=== PATIENT | female | born 1950 | race Two or more races ===

== ENCOUNTER 2024-09-15 22:59 | Inpatient (IN) | payer OTHER ==
[~2024-09-15] VITALS: Ht 160 cm; Wt 87.0 kg
[2024-09-15 23:33] LABS: Basophils # (auto) 0.1 10 ^3/uL (0-0.2); Basophils % (auto) 0.5 % (0.0-2.0); Eosinophils # (auto) 0 10 ^3/uL (0-0.8); Eosinophils % (auto) 0.3 % (0.0-7.0); Hematocrit 44.9 % (36.0-46.0); Hemoglobin 14.6 g/dL (12.2-16.2); Lymphocytes # (auto) 0.7 10 ^3/uL (0.4-5.4); Mean Corpuscular Hemoglobin 28.6 pg (28.0-32.0); Mean Corpuscular Hgb Conc. 32.5 g/dL (32.0-36.0); Mean Corpuscular Volume 87.9 fL (80.0-100.0); Monocytes # (auto) 0.7 10 ^3/uL (0-1.3); Monocytes % (auto) 5.2 % (0.0-12.0); Neutrophils # (auto) 11.7 10 ^3/uL (1.6-8.6); Nucleated Red Blood Cells % 0.1 %; Platelet Count (auto) 239 10^3/uL (140-450); Red Blood Cells 5.11 10^6/uL (4.0-5.20); Red Cell Distribution Width 15.6 % (11.8-14.3); White Blood Cell 13.1 10^3/uL (4.4-10.8)
[2024-09-15 23:51] LABS: Alanine Aminotransferase 18 U/L (7-40); Albumin 4.5 g/dL (3.2-4.8); Alkaline Phosphatase 84 U/L (46-116); Anion Gap 10 (5-15); Aspartate Aminotransferase 18 U/L (13-40); Blood Urea Nitrogen 16 mg/dL (9-23); Carbon Dioxide 20 mmol/L (20-31); Chloride 106 mmol/L (98-107); Sodium 136 mmol/L (136-145)
[2024-09-15 23:52] LABS: Bilirubin, Total 0.6 mg/dL (0.2-1.0); Total Protein 7.5 g/dL (5.7-8.2)
[2024-09-15 23:54] LABS: Calcium 10.5 mg/dL (8.7-10.4); Glucose 198 mg/dL (74-106)
--- NOTE | 2024-09-16 01:35 | DVH ---
EXAM: XY CHEST XRAY 1 VIEW CLINICAL HISTORY: cp TECHNIQUE: Single AP view of the chest WID: COMPARISON: None FINDINGS: Lines and tubes: None Chest: The heart size and pulmonary vasculature is within normal limits. No pleural effusion, pneumothorax, or consolidation. Linear bibasilar scarring or atelectasis. The osseous structures are grossly intact. IMPRESSION: No acute cardiopulmonary abnormality.
--- NOTE | 2024-09-16 01:48 | ED.PDOC ---
HPI Comments 73-year-old female complaining of chest pain reported as tightness which started at 4:00 p.m.. States chest pain came on she felt nauseous and started feeling dizzy. Patient states she waited for did improve but it had not improved. She was at 8/10 chest pain. She called EMS. Blood pressure with the EMS he was 200s over 100s EMS was able to give her a breathing treatment and one tablet of nitro. Patient reports it did reduce the chest pain. EKG showed right bundle-branch block patient denies any fever or chills denies any cough or congestion Chief Complaint: Chest Pain Time Seen by MD: 23:03 Reviewed Notes: Nurses Notes Allergies: Coded Allergies: Sulfamethoxazole w/Trimethoprim (Verified Allergy, Unknown, 09/15/24) Information Source: Patient, Emergency Med Personnel Mode of Arrival: EMS Severity: Severe Past Medical History PAST MEDICAL HISTORY: Cancer, High Lipids, HTN Constitutional: reports: fatigue, weakness; denies: chills, diaphoresis, fever, sweats, others EENTM: denies: blurred vision, double vision, ear bleeding, ear discharge, ear drainage, ear pain, ear ringing, eye pain, eye redness, hearing loss, mouth pain, mouth swelling, nasal discharge, nose bleeding, nose congestion, nose p ain, photophobia, tearing, throat pain, throat swelling, voice changes, others Respiratory: denies: cough, hemoptysis, orthopnea, SOB at rest, shortness of breath, SOB with excertion, stridor, wheezing, others Cardiovascular: reports: chest pain, lightheadedness; denies: dizzy spells, diaphoresis, Dyspnea on exertion, edema, irregular heart beat, left arm pain, palpitations, PND, syncope, others Gastrointestinal: reports: nausea, vomiting; denies: abdomen distended, abdominal pain, blood streaked bowels, constipated, diarrhea, dysphagia, difficulty swallowing, hematemesis, melena, poor appetite, poor fluid intake, rectal bleeding, rectal pain, others Genitourinary: denies: abnormal vagina bleeding, burning, dyspareunia, dysuria, flank pain, frequency, hematuria, incontinence, pain, , vagina discharge, urgency, others Neurological: denies: dizziness, fainting, headache, left sided numbness, left sided weakness, numbness, paresthesia, pre-existing deficit, right sided numbness, right sided weakness, seizure, speech problems, tingling, tremors, weakness, others Musculoskeletal: denies: back pain, gout, joint pain, joint swelling, muscle pain, muscle stiffness, neck pain, others Integumetry: denies: bruises, change in color, change in hair/nails, dryness, laceration, lesions, lumps, rash, wounds, others Allergic/Immunocompromised: denies: Difficulty Healing, Frequent Infections, Hives, Itching, others Physical Exam General Appearance: Moderate Distress, Normal HEENT: Normal ENT Inspection, Pharynx Normal, TMs Normal Neck: Full Range of Motion, Non-Tender, Normal, Normal Inspection Respiratory: Chest Non-Tender, Lungs Clear, No Accessory Muscle Use, No Resp iratory Distress, Normal Breath Sounds Cardiovascular: No Edema, No JVD, No Murmur, No Gallop, Normal Peripheral Pulses, Regular Rate/Rhythm Breast Exam: Deferred Gastrointestinal: No Organomegaly, Non Tender, No Pulsatile Mass, Normal Bowel Sounds, Soft Genitalia: Deferred Pelvic: Deferred Rectal: Deferred Extremities: No calf tenderness, Normal capillary refill, Normal inspection, Normal range of motion, Non-tender, No pedal edema Musculoskeletal : Apperance: Normal Neurologic: Alert, 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 Was a procedure done?: No CP Differential Dx Differential Diagnosis: Anxiety / Panic Attack, Atrial Dysrhythmia, Hyperventilation, Hypoxia, ME, Pulmonary Embolus Differential Diagnosis: HTN Essential, HTN Accelerated Differential Diagnosis: Angina X-Ray, Labs, Meds, VS Vital Signs Date Time Temp Pulse Resp B/P (MAP) Pulse Ox O2 Delivery O2 Flow Rate FiO2 09/15/24 23:56 118 09/15/24 23:15 98.5 108 16 103/60 (74) 97 09/15/24 23:04 123 Lab Test 09/16/24 00:11 09/15/24 23:20 Range/Units Troponin I High Sensitivity < 3 L < 3 L </=34 ng/L White Blood Count 13.1 H 4.4-10.8 10^3/uL Red Blood Count 5.11 4.0-5.20 10^6/uL Hemoglobin 14.6 12.2-16.2 g/dL Hematocrit 44.9 36.0-46.0 % Mean Corpuscular Volume 87.9 80.0-100.0 fL Mean Corpuscular Hemoglobin 28.6 28.0-32.0 pg Mean Corpuscular Hemoglobin Concent 32.5 32.0-36.0 g/dL Red Cell Distribution Width 15.6 H 11.8-14.3 % Platelet Count 239 140-450 10^3/uL Mean Platelet Volume 8.1 6.9-10.8 fL Neutrophils (%) (Auto) 89.0 H 37.0-80.0 % Lymphocytes (%) (Auto) 5.0 L 10.0-50.0 % Monocytes (%) (Auto) 5.2 0.0-12.0 % Eosinophils (%) (Auto) 0.3 0.0-7.0 % Basophils (%) (Auto) 0.5 0.0-2.0 % Neutrophils # (Auto) 11.7 H 1.6-8.6 10 ^3/uL Lymphocytes # (Auto) 0.7 0.4-5.4 10 ^3/uL Monocytes # (Auto) 0.7 0-1.3 10 ^3/uL Eosinophils # (Auto) 0 0-0.8 10 ^3/uL Basophils # (Auto) 0.1 0-0.2 10 ^3/uL Nucleated Red Blood Cells 0.1 % Sodium Level 136 136-145 mmol/L Potassium Level 4.0 3.5-5.1 mmol/L Chloride Level 106 98-107 mmol/L Carbon Dioxide Level 20 20-31 mmol/L Anion Gap 10 5-15 Blood Urea Nitrogen 16 9-23 mg/dL Creatinine 1.46 H 0.550-1.02 mg/dL Glomerular Filtration Rate Calc 37 >90 mL/min BUN/Creatinine Ratio 11.0 10.0-20.0 Serum Glucose 198 H 74-106 mg/dL Calcium Level 10.5 H 8.7-10.4 mg/dL Total Bilirubin 0.6 0.2-1.0 mg/dL Aspartate Amino Transferase (AST) 18 13-40 U/L Alanine Aminotransferase (ALT) 18 7-40 U/L Alkaline Phosphatase 84 46-116 U/L B-Type Natriuretic Peptide 10.69 0-100 pg/mL Total Protein 7.5 5.7-8.2 g/dL Albumin 4.5 3.2-4.8 g/dL X-Ray, Labs, Meds, VS Comment Patient will be admitted for chest pain rule out ACS Recommend cardiology consult morning Patient will be monitored for blood pressure Time of 1ST Reevaluation: 01:47 Reevaluation 1ST: Unchanged Patient Education/Counseling: Diagnosis, Treatment Family Education/Counseling: Diagnosis Departure 1 Departure Time of Disposition: 01:45 Impression: Primary Impression: Chest pain Qualified Codes: R07.2 - Precordial pain Additional Impression: Hypertensive urgency Disposition: 09 ADMITTED INPATIENT Condition: Fair Critical Care Note Critical Care Time?: No Stability Stability form required: No Heart Score Heart Score: Heart Score Response (Comments) Value History Highly Suspicious 2 EKG Repolarization Disturb 1 Age >65 2 Risk Factors 1 or 2 risk factors 1 Troponin Normal limit 0 Total 6 DEMETRIUS GARNETT Sep 16, 2024 01:48
[2024-09-16] MEDS ORDERED: MORPHINE SULFATE INJ 2 MG/ml SYRG IV PRN (02:30)
[2024-09-16] MEDS ORDERED: NITROGLYCERIN 0.4 MG SL TAB SL PRN (02:30)
--- NOTE | 2024-09-16 03:29 | DVHHPRES ---
History of Present Illness Resident Creating Document: PURVI HERNANDEZ RESDIENT History of Present Illness This is a 73-year-old female past medical history of diabetes mellitus type 2, hypothyroidism, hypertension, hyperlipidemia, presented to the hospital because of the chest comfort. Per patient, 1st the patient developed left shoulder pain which was radiating to the back and neck, after 1 hour, the patient developed epigastric discomfort which was associated nausea, vomiting, palpitation and sweating. Patient denies fever, headache, and any motor or sensory deficits. PMHx: diabetes mellitus type 2, hypothyroidism, hypertension, hyperlipidemia and breast cancer (status post intubation) PSHx: Breast cancer surgery, eye surgery for the cataracts Family history: Noncontributory Social history: Patient lives at home with the family, ex-smoker, denies alcohol and any drug use Home medication: Insulin, Jardiance, metoprolol, levothyroxine, atorvastatin, aspirin, Protonix Allergic history: Bactrim Review of Systems Allergies: Coded Allergies: Sulfamethoxazole w/Trimethoprim (Verified Allergy, Unknown, 09/15/24) Exam Vital Signs Vital Signs Date Time Temp Pulse Resp B/P (MAP) Pulse Ox O2 Delivery O2 Flow Rate FiO2 09/15/24 23:56 118 09/15/24 23:15 98.5 16 103/60 (74) 97 Exam General Appearance: Alert, Oriented X3, Cooperative, No acute distress HEENT: Atraumatic, PERRLA, EOMI, Mucous membrane moist/pink Respiratory: Clear to auscultation, Normal air movement Cardiovascular: Regular rate, Normal S1, Normal S2, No murmurs, no chest wall tenderness Abdominal: Normal bowel sounds, Soft, No tenderness, No hepatospenomegaly, No masses Extremities: No clubbing, No cyanosis, No edema, Normal pulses, No tenderness/swelling Skin: No rashes, No breakdown, No significant lesion Neuro: Normal gait, Normal speech, Strength at 5/5 X4 ext, Normal tone, Sensation intact, Cranial nerves 3-12 NL, Reflexes 2+ Psych/Mental Status: Mental status NL, Mood NL Labs/Xrays Labs Test 09/16/24 00:11 09/15/24 23:20 Range/Units Troponin I High Sensitivity < 3 L </=34 ng/L White Blood Count 13.1 H 4.4-10.8 10^3/uL Red Blood Count 5.11 4.0-5.20 10^6/uL Hemoglobin 14.6 12.2-16.2 g/dL Hematocrit 44.9 36.0-46.0 % Mean Corpuscular Volume 87.9 80.0-100.0 fL Mean Corpuscular Hemoglobin 28.6 28.0-32.0 pg Mean Corpuscular Hemoglobin Concent 32.5 32.0-36.0 g/dL Red Cell Distribution Width 15.6 H 11.8-14.3 % Platelet Count 239 140-450 10^3/uL Mean Platelet Volume 8.1 6.9-10.8 fL Neutrophils (%) (Auto) 89.0 H 37.0-80.0 % Lymphocytes (%) (Auto) 5.0 L 10.0-50.0 % Monocytes (%) (Auto) 5.2 0.0-12.0 % Eosinophils (%) (Auto) 0.3 0.0-7.0 % Basophils (%) (Auto) 0.5 0.0-2.0 % Neutrophils # (Auto) 11.7 H 1.6-8.6 10 ^3/uL Lymphocytes # (Auto) 0.7 0.4-5.4 10 ^3/uL Monocytes # (Auto) 0.7 0-1.3 10 ^3/uL Eosinophils # (Auto) 0 0-0.8 10 ^3/uL Basophils # (Auto) 0.1 0-0.2 10 ^3/uL Nucleated Red Blood Cells 0.1 % Sodium Level 136 136-145 mmol/L Potassium Level 4.0 3.5-5.1 mmol/L Chloride Level 106 98-107 mmol/L Carbon Dioxide Level 20 20-31 mmol/L Anion Gap 10 5-15 Blood Urea Nitrogen 16 9-23 mg/dL Creatinine 1.46 H 0.550-1.02 mg/dL Glomerular Filtration Rate Calc 37 >90 mL/min BUN/Creatinine Ratio 11.0 10.0-20.0 Serum Glucose 198 H 74-106 mg/dL Calcium Level 10.5 H 8.7-10.4 mg/dL Total Bilirubin 0.6 0.2-1.0 mg/dL Aspartate Amino Transferase (AST) 18 13-40 U/L Alanine Aminotransferase (ALT) 18 7-40 U/L Alkaline Phosphatase 84 46-116 U/L B-Type Natriuretic Peptide 10.69 0-100 pg/mL Total Protein 7.5 5.7-8.2 g/dL Albumin 4.5 3.2-4.8 g/dL Assessment/Plan Assessment/Plan Possible ACS, unstable angina Possible gastritis History of hypertension EKG shows right bundle-branch block Chest x-ray shows no acute cardiopulmonary abnormalities BNP is within normal limits and serial trop I is also normal Echocardiogram Consult cardiology Aspirin Atorvastatin Nitroglycerin sublingually Metoprolol Diabetes mellitus type 2 Check Hb A1c Insulin according to mild SS Hypothyroidism Continue levothyroxine Check TSH Hypercalcemia Likely due to dehydration due to vomiting Hyperlipidemia Continue atorvastatin Possible RAY, likely VMN Check FENa Kidney ultrasound DIET: Cardiac diet DVT PROPHYLAXIS: Lovenox GI PROPHYLAXIS:: Protonix CODE STATUS: Goal of care discussed for more than 27 minutes, full code DISPOSITION: Telemetry Patient's status discussed with patient and on the bedside. Case discussed with Dr. Jackson Plan discussed with: Patient, Spouse, Other (RN) My Orders Orders - PURVI HERNANDEZ RESNATHAN Procedure Category Date Status Time Admit ADMIT 09/16/24 Transmitted 02:21 Nitroglycerin PHA 09/16/24 In Process Sublingual (Ntrostat 02:30 Morphine Sulfate PHA 09/16/24 In Process Injection 02:30 Stat Ekg For Chest [facility] 09/16/24 In Process Pain 02:21 Notify Of Changes [facility] 09/16/24 In Process From Base 02:21 Basket Machine Operator For [facility] 09/16/24 In Process 24 Hours 02:21 Emergency Dysrhythmia [facility] 09/16/24 In Process Protocol 02:21 Rhythm Strips Once [facility] 09/16/24 In Process Every Shift 02:21 Echo 2d Mode Cardiac US 09/16/24 Logged DOP 03:02 Complete Blood Count LAB 09/16/24 Logged 04:00 Comprehensive LAB 09/16/24 Logged Metabolic Panel 04:00 * Cardiology Consult CONS 09/16/24 Transmitted 03:02 Cardiac DIET 09/16/24 Transmitted Diet-2gna,Lofat,Lochol Breakfast B-Type Natriuretic LAB 09/16/24 Logged Peptide 06:00 Lipid Panel LAB 09/16/24 Logged 03:02 Thyroid Stimulating LAB 09/16/24 Logged Hormone 03:02 Free T3 LAB 09/16/24 Logged 03:02 Free T4 (Free LAB 09/16/24 Logged Thyroxine) 03:02 Hemoglobin A1c LAB 09/16/24 Logged 03:02 Urinalysis LAB 09/16/24 Logged 03:02 Drug Screen LAB 09/16/24 Logged 03:02 Atorvastatin (Lipitor) PHA 09/16/24 Logged 22:00 Atorvastatin (Lipitor) PHA 09/16/24 Logged 03:15 Aspirin Tablet PHA 09/16/24 Logged 10:00 Enoxaparin Sodium PHA 09/16/24 Logged (Lovenox) 03:15 Enoxaparin Sodium PHA 09/16/24 Logged (Lovenox) 10:00 Levothyroxine Tablet PHA 09/16/24 Logged (Synthroid Tablet) 06:00 Empagliflozin PHA 09/16/24 Logged (Jardiance) 10:00 Metoprolol Xl PHA 09/16/24 Transmitted Succinate (Toprol Xl) 10:00 Pantoprazole Tablet PHA 09/16/24 Logged (Protonix Tablet) 06:00 Kidney US 09/16/24 Transmitted 03:13 Urine Sodium LAB 09/16/24 Transmitted 03:13 Urine Creatinine LAB 09/16/24 Transmitted 03:13 Date of Service: Sep 16, 2024 Billing Provider: BROOKE JACKSON MD Common Visit Codes: [id number] INP/OBS CARE (HIGH) Secondary Visit Codes: [id number] CARE PLAN 30 MINUTES PURVI HERNANDEZ RESDIENT Sep 16, 2024 03:29 BROOKE JACKSON MD Sep 16, 2024 08:26
[2024-09-16] MEDS ORDERED: DEXTROSE (50%) 50ML SYRG IV PRN (03:30)
[2024-09-16] MEDS: SODIUM CHLORIDE 0.9% 1,000 ML IV ONE (04:18)
[2024-09-16] MEDS: InsuLIN REG 1unit/0.01ml Soln (100units/ml) SC SCH (04:21)
[2024-09-16] MEDS: ACCU-CHEK COMFORT CURVE STRIP VI SCH (04:21)
[2024-09-16] MEDS: ATORVASTATIN 20 MG TAB PO ONE (04:26)
[2024-09-16] MEDS: ENOXAPARIN SOD 40 MG/0.4 ML SYRINGE SC ONE (05:18)
[2024-09-16] MEDS: PANTOPRAZOLE 40 MG TAB PO SCH (06:00)
[2024-09-16] MEDS: LEVOTHYROXINE SODIUM 25 MCG TAB PO SCH (06:00)
--- NOTE | 2024-09-16 06:49 | DVH ---
INDICATION: RAY TECHNIQUE: Multiple real-time sonographic images of the kidneys and bladder were obtained. COMPARISON: None FINDINGS: The right kidney measures 9.7 cm in length, which is normal in size. There is normal echogenicity of the right kidney. No hydronephrosis. The left kidney measures 8.9 cm in length, which is normal in size. There is normal echogenicity of t he left kidney. There is a cyst in the lower pole measuring 2.2 x 2.1 x 2.2 cm. No hydronephrosis. No large intraluminal masses are seen in the bladder. Prior to voiding the bladder volume measures volume 294.3 cc. IMPRESSION: 1. No hydronephrosis. 2.2 cm left renal cyst.
[2024-09-16 07:32] LABS: Basophils # (auto) 0 10 ^3/uL (0-0.2); Basophils % (auto) 0.2 % (0.0-2.0); Eosinophils # (auto) 0 10 ^3/uL (0-0.8); Hemoglobin 14.1 g/dL (12.2-16.2); Lymphocytes # (auto) 0.4 10 ^3/uL (0.4-5.4); Lymphocytes % (auto) 4.8 % (10.0-50.0); Mean Corpuscular Hemoglobin 29.3 pg (28.0-32.0); Mean Corpuscular Hgb Conc. 33.5 g/dL (32.0-36.0); Mean Corpuscular Volume 87.5 fL (80.0-100.0); Monocytes # (auto) 0.3 10 ^3/uL (0-1.3); Monocytes % (auto) 3.9 % (0.0-12.0); Neutrophils # (auto) 7.3 10 ^3/uL (1.6-8.6); Neutrophils % (auto) 91.1 % (37.0-80.0); Platelet Count (auto) 220 10^3/uL (140-450); Red Cell Distribution Width 15.6 % (11.8-14.3)
[2024-09-16 07:44] LABS: Alanine Aminotransferase 15 U/L (7-40); Albumin 4.1 g/dL (3.2-4.8); Alkaline Phosphatase 72 U/L (46-116); Anion Gap 9 (5-15); Aspartate Aminotransferase 15 U/L (13-40); BUN/Creatinine Ratio 13.1 (10.0-20.0); Blood Urea Nitrogen 20 mg/dL (9-23); Calcium 9.8 mg/dL (8.7-10.4); Carbon Dioxide 24 mmol/L (20-31); Chloride 104 mmol/L (98-107); Potassium 4.1 mmol/L (3.5-5.1); Sodium 137 mmol/L (136-145)
[2024-09-16 07:45] LABS: Bilirubin, Total 0.5 mg/dL (0.2-1.0); Cholesterol 171 mg/dL (< 200); Glucose 129 mg/dL (74-106); HDL Cholesterol 48 mg/dL (40-59); LDL Cholesterol 105 mg/dL (< 100); Total Protein 6.8 g/dL (5.7-8.2); Triglycerides 197 mg/dL (< 150)
[2024-09-16 07:51] LABS: Free T3 2.05 pg/mL (2.3-4.2); Free T4 (Free Thyroxine) 1.14 ng/dL (0.89-1.76)
[2024-09-16 08:00] VITALS: PULSE 106; RESP 15; O2SAT 91
[2024-09-16 08:43] LABS: Urine Bacteria None Seen /hpf (None Seen)
[2024-09-16 09:08] LABS: Urine Blood Negative /uL (Negative); Urine Clarity Clear (Clear); Urine Color Light-Yellow (Yellow); Urine Protein, UAD Negative (Negative); Urine Specific Gravity 1.029 (1.001-1.035); Urine Squamous Epithelial Cell FEW /hpf (<5); Urine Urobilinogen Normal (Negative); Urine WBC 1 /hpf (0 - 5); Urine pH 5.5 (5.0-9.0)
[2024-09-16 09:09] LABS: Creatinine, Urine 112.83 mg/dL (30.0-125.0)
[2024-09-16 09:39] LABS: Amphetamine Screen, Urine Neg (NEGATIVE); Barbiturate Scree,Urine Neg (NEGATIVE); Benzodiazephine Screen, Urine Neg (NEGATIVE); Cannabinoid Screen, Urine Neg (NEGATIVE); Cocaine Screen, Urine Neg (NEGATIVE); Opiate Scree,Urine Neg (NEGATIVE); Phencyclidine Screen, Urine Neg (NEGATIVE)
--- NOTE | 2024-09-16 09:50 | ECG ---
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
--- NOTE | 2024-09-16 09:50 | ECG ---
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
[2024-09-16] MEDS: EMPAGLIFLOZIN 10 MG TAB PO SCH (10:50)
[2024-09-16] MEDS: ASPirin 81 mg TAB PO SCH (10:50)
[2024-09-16] MEDS: METOPROLOL SUCCINATE XL 50 MG TAB PO SCH (10:51)
--- NOTE | 2024-09-16 11:45 | DVHSR ---
APPROVED REPORT EXAM: LIMITED Two-dimensional and M-mode echocardiogram with Doppler and color Doppler. Blood Pressure: 103/43 mmHg INDICATION Chest Pain RISK FACTORS Obesity: Height: 5'3, Weight: 250 DIMENSIONS LVDd3.8 (3.8-5.7cm)LA (2D)2.7 (1.9-4.0cm)Aortic Root3.5 (2.0-3.7cm) LVDs2.8 (2.5-4.0cm)LA (MM) (1.9-4.0cm)Aortic Cusp Exc1.6 (1.5-2.0cm) EF (%) 75.0 (55-70%)Rt. Atrium3.8 (1.9-4.0cm)Asc. Aorta cm IVSd1.1 (0.7-1.1cm)RV (D) (1.8-2.4cm) PWd0.8 (0.7-1.1cm) Mitral Valve MitralMitral Stenosis E wave0.60m/sMV Mean GR.mmHg A wave1.19m/sMV Peak GR.mmHg E/A ratio0.52D MVAcm2 DECEL [id number] 1/2 Timems Aortic Valve Aortic ValveAortic Stenosis V11.30m/Travis Mean GR.4mmHg V21.37m/Travis Peak GR.7mmHg LVOT Diameter2.0 (1.8-2.4cm)Doppler AVA2.98cm2 Pulmonic Valve V21.26m/s LEFT VENTRICLE Normal left ventricular size. Wall thickness is normal. Left ventricular systolic function is hyper dynamic and is estimated at 70-75%. There is no gross wall motion abnormalities but subendocardial d efinition is limited. Diastolic function is indeterminate. RIGHT VENTRICLE Not well visualized. The right ventricle is likely mildly dilated in size. Systolic function is nor mal. ATRIA Both atria are of normal size. MITRAL VALVE Normal structure and function. No significant regurgitation. PULMONIC VALVE Not well visualized. TRICUSPID VALVE Normal structure and function. No significant regurgitation. PA systolic pressure could not be adeq uately estimated. AORTIC VALVE Not well visualized. No significant stenosis or regurgitation. GREAT VESSELS The aortic root is of normal size. PERICARDIAL EFFUSION No significant pericardial effusion. IVC is small in size and collapses with inspiration. Other Information Quality : Technically LimitedRhythm : Technically limited study due to patient position.body habitus. Conclusion The study is technically limited. Normal left ventricular size with hyperdynamic systolic function. Normal right ventricular systolic function. No evidence of hemodynamically significant valvular disease. No significant pericardial effusion. PA systolic pressure could not be estimated.
--- NOTE | 2024-09-16 13:51 | DVHINCON2 ---
Date Seen: Sep 16, 2024 Referring Physician MD [place] resident Reason for Consultation Rule out ACS History of Present Illness This is a 73-year-old female patient who presents to the emergency room with chief complaint of chest pressure. She states that yesterday at approximately 3:00 p.m. she was sitting down sewing when suddenly she began to feel left shoulder discomfort. Shortly thereafter, the discomfort radiated over to her other shoulder. The patient attributed this discomfort to her sitting position so she decided to go take a nap. She states that when she woke from the nap, she felt as though "a brick was on my chest". She describes the chest pain as unprovoked, constant, pressure-like in nature, substernal and nonradiating. Associated symptoms include nausea and dizziness. EMS was called and the patient was brought to the emergency room for further evaluation. According to records, EMS provided the patient with one tablet of nitroglycerin as well as 324mg mg Aspirin, and the patient states that she felt relief of chest pain. Initial twelve lead electrocardiogram reveals sinus tachycardia with right bundle branch block and diffuse ST segment depression. Initial troponin level was negative. Significant past medical history includes hypertension, dyslipidemia, type 2 diabetes mellitus, thyroid disease, breast cancer now in remission over 20 years, and obesity. The patient reports she had a stress test approximately two years ago when she needed cardiac clearance, but has not seen a lump roller since then. Past Medical History Past medical history reviewed. No other significant than mentioned above. Past Surgical History Right breast lumpectomy Family History Family history reviewed. Social History Denies the use of tobacco, alcohol or illicit drugs. Allergies: Coded Allergies: Sulfamethoxazole w/Trimethoprim (Verified Allergy, Unknown, 09/15/24) Home Meds Home medications reviewed. Current Medications Current Medications Medications (Trade) Dose Ordered Sig/Che Route PRN Reason Start Time Stop Time Status Last Admin Nitroglycerin (Ntrostat Sublingual) 0.4 mg Q5MINP PRN SL FOR CHEST PAIN 09/16/24 02:30 Morphine Sulfate 2 mg Q30M PRN IV FOR CHEST PAIN 09/16/24 02:30 Atorvastatin Calcium (Lipitor) 40 mg HS PO 09/16/24 22:00 Aspirin 81 mg DAILY PO 09/16/24 10:00 09/16/24 10:50 Enoxaparin Sodium (Lovenox) 40 mg DAILY SC 09/17/24 10:00 Levothyroxine Sodium (Synthroid Tablet) 75 mcg QAM@0600 PO 09/16/24 06:00 09/16/24 06:00 Empaglifozin (Jardiance) 25 mg DAILY PO 09/16/24 10:00 09/16/24 10:50 Metoprolol Succinate (Toprol Xl) 100 mg DAILY PO 09/16/24 10:00 09/16/24 10:51 Pantoprazole Sodium (Protonix Tablet) 40 mg DAILY@0600 PO 09/16/24 06:00 09/16/24 06:00 Diagnostic Test (Pha) (Accu-Chek Comfort Curve T) 1 strip IQ4HR 09/16/24 04:00 09/16/24 08:00 Insulin Human Regular (InsuLIN R) IQ4HR SC 09/16/24 04:00 09/16/24 08:00 Dextrose 50 ml UD PRN IV Blood Sugar LESS THAN 60 09/16/24 03:30 Review of Systems Constitutional: No symptom reported Ears, Nose, & Throat: No symptom reported Eyes: No symptom reported Neurological: No symptoms reported Pulmonary/Respiratory: No symptoms reported Cardiovascular: Chest pressure Gastrointestinal: No symptom reported Genitourinary: No symptom reported Musculoskeletal: No symptom reported Skin: No symptom reported Psychiatric: No symptom reported Endocrine: No symptom reported Hematologic/Lymphatic: No symptom reported Vital Signs Vital Signs Date Time Temp Pulse Resp B/P (MAP) Pulse Ox O2 Delivery O2 Flow Rate FiO2 09/16/24 10:51 109 103/54 09/16/24 08:00 98.6 15 91 98.6 09/16/24 08:00 Room Air* 0 21 Physical Exam General Appearance: Cooperative. Obese Pulmonary/Respiratory: Clear, bilateral breaths sounds. Cardiovascular/Chest: Regular rate and rhythm. Peripheral Pulses: 2+ Radial (R). 2+ Radial (L). 2+ Pedal (R). 2+ Pedal (L) Abdominal Exam: Normal bowel sounds. Ankle Exam: Negative ankle edema Lower extremities: Negative lower extremity edema Neuro/Mental Status: A/OX4, coherent. Thoughts/Psych: Normal thought pattern. Appropriate mood and affect. Good judgment and insight. Appearance: No acute distress. Skin Exam: Normal inspection. Normal color. Warm and dry. Labs/Diagnostic Data Labs Test 09/16/24 08:51 09/16/24 08:00 09/16/24 06:50 09/16/24 00:11 Range/Units POC Glucose 167 H 70-106 mg/dl Urine Color Light-yellow Yellow Urine Clarity Clear Clear Urine pH 5.5 5.0-9.0 Urine Specific [place] 1.029 1.001-1.035 Urine Protein Negative Negative Urine Ketones Negative Negative Urine Blood Negative Negative /uL Urine Nitrite Negative Negative Urine Bilirubin Negative Negative Urine Urobilinogen Normal Negative mg/dL Urine Leukocyte Esterase Negative Negative /uL Urine RBC 1 0 - 4 /hpf Urine WBC 1 0 - 5 /hpf Urine Squamous Epithelial Cells Few <5 /hpf Urine Bacteria None seen None Seen /hpf Urine Creatinine 112.83 30.0-125.0 mg/dL Urine Sodium 38 L 40-220 mmol/L Urine Glucose 4+ H Normal mg/dL Urine Opiates Screen Neg NEGATIVE Urine Fentanyl Screen Neg NEGATIVE Urine Barbiturates Screen Neg NEGATIVE Urine Phencyclidine Screen Neg NEGATIVE Urine Amphetamines Screen Neg NEGATIVE Urine Benzodiazepines Screen Neg NEGATIVE Urine Cocaine Screen Neg NEGATIVE Urine Cannabinoids Screen Neg NEGATIVE White Blood Count 8.0 # 4.4-10.8 10^3/uL Red Blood Count 4.80 4.0-5.20 10^6/uL Hemoglobin 14.1 12.2-16.2 g/dL Hematocrit 42.0 36.0-46.0 % Mean Corpuscular Volume 87.5 80.0-100.0 fL Mean Corpuscular Hemoglobin 29.3 28.0-32.0 pg Mean Corpuscular Hemoglobin Concent 33.5 32.0-36.0 g/dL Red Cell Distribution Width 15.6 H 11.8-14.3 % Platelet Count 220 140-450 10^3/uL Mean Platelet Volume 8.3 6.9-10.8 fL Neutrophils (%) (Auto) 91.1 H 37.0-80.0 % Lymphocytes (%) (Auto) 4.8 L 10.0-50.0 % Monocytes (%) (Auto) 3.9 0.0-12.0 % Eosinophils (%) (Auto) 0.0 0.0-7.0 % Basophils (%) (Auto) 0.2 0.0-2.0 % Neutrophils # (Auto) 7.3 1.6-8.6 10 ^3/uL Lymphocytes # (Auto) 0.4 0.4-5.4 10 ^3/uL Monocytes # (Auto) 0.3 0-1.3 10 ^3/uL Eosinophils # (Auto) 0 0-0.8 10 ^3/uL Basophils # (Auto) 0 0-0.2 10 ^3/uL Nucleated Red Blood Cells 0.0 % Sodium Level 137 136-145 mmol/L Potassium Level 4.1 3.5-5.1 mmol/L Chloride Level 104 98-107 mmol/L Carbon Dioxide Level 24 20-31 mmol/L Anion Gap 9 5-15 Blood Urea Nitrogen 20 9-23 mg/dL Creatinine 1.53 H 0.550-1.02 mg/dL Glomerular Filtration Rate Calc 35 >90 mL/min BUN/Creatinine Ratio 13.1 10.0-20.0 Serum Glucose 129 H 74-106 mg/dL Hemoglobin A1c 7.4 H <5.7 % A1C Calcium Level 9.8 8.7-10.4 mg/dL Total Bilirubin 0.5 0.2-1.0 mg/dL Aspartate Amino Transferase (AST) 15 13-40 U/L Alanine Aminotransferase (ALT) 15 7-40 U/L Alkaline Phosphatase 72 46-116 U/L B-Type Natriuretic Peptide 20.15 0-100 pg/mL Total Protein 6.8 5.7-8.2 g/dL Albumin 4.1 3.2-4.8 g/dL Triglycerides Level 197 H < 150 mg/dL Cholesterol Level 171 < 200 mg/dL LDL Cholesterol 105 H < 100 mg/dL HDL Cholesterol 48 40-59 mg/dL Thyroid Stimulating Hormone (TSH) 0.57 0.55-4.78 uIU/mL Free Thyroxine (T4) Calculated 1.14 0.89-1.76 ng/dL Free Triiodothyronine (T3) pg/mL 2.05 L 2.3-4.2 pg/mL Troponin I High Sensitivity < 3 L </=34 ng/L Assessment Chest pain, rule out coronary artery disease Hypertension Dyslipidemia Type 2 diabetes mellitus Thyroid disease Acute kidney injury Obesity Plan/Recommendation Continue with the following plan/recommendations (Dr. Guzman): * Echocardiogram reveals EF 70-75% * Chest pain protocol * HEART score: 5 points (moderate score) * lipid lowering agent * Monitor renal function * [facility] on 09/17/24 The patient seen and examined at bedside with . Given the patient's clinical presentation, twelve lead electrocardiogram findings, and moderate HEART score, we will recommend for the patient to undergo a coronary angiogram with left heart catheterization.The procedure was discussed with the patient in full detail including risks and benefits. Risks include but are not limited to bleeding, contrast-induced nephropathy, stroke, and even . The patient understands and is agreeable to undergo the procedure. We will schedule the patient at first availability on 09/17/24. Thank you for allowing us to care for this patient. Please call with any questions or concerns. Critical care time spent: 44 minutes Plan discussed with: Patient NYHA Physical activity limitations: NA Date of Service: Sep 16, 2024 Billing Provider: ALFRED GUZMAN MD Cardiology Common Codes: [id number] INP/OBS CARE (High) Cardiology Consultation Codes: [id number] CONSULT <45MIN [facility] Sep 16, 2024 13:51
[2024-09-16 15:47] VITALS: PULSE 98; RESP 18
--- NOTE | 2024-09-16 15:54 | DVHPNRES ---
Progress Note Date Seen: Sep 16, 2024 Resident Creating Document: SHAD JADE RESIDENT Has the PT tested + for MRSA If YES, has PT been informed?: No Medical Necessity Reason Pt with a Central, PICC or Fol: No Subjective Review of Systems A 73-year-old female past medical history of diabetes mellitus type 2, hypothyroidism, hypertension, hyperlipidemia, presented to the hospital because of the chest comfort, pressure like. Per patient, 1st the patient developed left shoulder pain which was radiating to the back and neck, after 1 hour, the patient developed epigastric discomfort which was associated nausea, vomiting, palpitation and sweating. The patient was at rest when the pain start, also the pain lasted upto 5 h and resolved with nitroglycerine. Patient denies fever, headache, and any motor or sensory deficits. PMHx: diabetes mellitus type 2, hypothyroidism, hypertension, hyperlipidemia and breast cancer (status post intubation) PSHx: Breast cancer surgery, eye surgery for the cataracts Family history: Noncontributory Social history: Patient lives at home with the family, ex-smoker, denies alcohol and any drug use Home medication: Insulin, Jardiance, metoprolol, levothyroxine, atorvastatin, aspirin, Protonix Allergic history: Bactrim Objective vital signs Vital Sign Date Time Temp Pulse Resp B/P (MAP) Pulse Ox O2 Delivery O2 Flow Rate FiO2 09/16/24 14:00 101 15 128/60 (82) 91 09/16/24 08:00 98.6 98.6 09/16/24 08:00 Room Air* 0 21 medications Current Medications Medications Dose Ordered Sig/Che Route Start Time Stop Time Status Last Admin Dose Admin Nitroglycerin 0.4 mg Q5MINP PRN SL 09/16/24 02:30 Morphine Sulfate 2 mg Q30M PRN IV 09/16/24 02:30 Atorvastatin Calcium 40 mg HS PO 09/16/24 22:00 Aspirin 81 mg DAILY PO 09/16/24 10:00 09/16/24 10:50 81 MG Enoxaparin Sodium 40 mg DAILY SC 09/17/24 10:00 Levothyroxine Sodium 75 mcg QAM@0600 PO 09/16/24 06:00 09/16/24 06:00 75 MCG Empaglifozin 25 mg DAILY PO 09/16/24 10:00 09/16/24 10:50 25 MG Metoprolol Succinate 100 mg DAILY PO 09/16/24 10:00 09/16/24 10:51 100 MG Pantoprazole Sodium 40 mg DAILY@0600 PO 09/16/24 06:00 09/16/24 06:00 40 MG Diagnostic Test (Pha) 1 strip IQ4HR 09/16/24 04:00 09/16/24 15:53 1 STRIP Insulin Human Regular IQ4HR SC 09/16/24 04:00 09/16/24 08:00 3 UNITS Dextrose 50 ml UD PRN IV 09/16/24 03:30 Examination General Appearance: Alert, Oriented X3, Cooperative, No acute distress HEENT: Atraumatic, PERRLA, EOMI, Mucous membrane moist/pink Respiratory: Clear to auscultation, Normal air movement Cardiovascular: Regular rate, Normal S1, Normal S2, No murmurs, no chest wall tenderness Abdominal: Normal bowel sounds, Soft, No tenderness, No hepatospenomegaly, No masses Extremities: No clubbing, No cyanosis, No edema, Normal pulses, No tenderness/swelling Skin: No rashes, No breakdown, No significant lesion Neuro: Normal gait, Normal speech, Strength at 5/5 X4 ext, Normal tone, Sensation intact, Cranial nerves 3-12 NL, Reflexes 2+ Psych/Mental Status: Mental status NL, Mood NL laboratory and microbiology Laboratory Tests 09/16/24 06:50 Test 09/16/24 06:50 Range/Units Serum Glucose 129 H 74-106 mg/dL Problem List/Assessment/Plan Problem List/Assessment/Plan Possible ACS, unstable angina History of hypertension EKG shows right bundle-branch block Chest x-ray shows no acute cardiopulmonary abnormalities BNP is within normal limits and serial trop I is also normal Consult cardiology Aspirin Atorvastatin Nitroglycerin sublingually Metoprolol Echocardiogram reveals EF 70-75% * Chest pain protocol * HEART score: 5 points (moderate score) * lipid lowering agent * Monitor renal function * [facility] on 09/17/24 Diabetes mellitus type 2 Hb A1c 7.4 Insulin according to mild SS Hypothyroidism Continue levothyroxine TSH normal Hypercalcemia Likely due to dehydration due to vomiting Hyperlipidemia Continue atorvastatin Possible RAY, likely VMN Kidney ultrasound: normal DIET: Cardiac diet DVT PROPHYLAXIS: Lovenox GI PROPHYLAXIS:: Protonix CODE STATUS: Goal of care discussed for more than 27 minutes, full code DISPOSITION: Telemetry Due to unstable angina and possible ACS patient is unstable for transfer Patient's status discussed with patient and on the bedside. Case discussed with Dr. Read Time spent on care 23 min Plan discussed with: Patient, Other Date of Service: Sep 17, 2024 Billing Provider: STACY READ MD Common Visit Codes: [id number] INP/OBS CARE(HIGH) SHAD JADE RESIDENT Sep 16, 2024 15:54 STACY READ MD Sep 17, 2024 14:46
[2024-09-16] MEDS ORDERED: INSU1.2I SC (16:03)
[2024-09-16] MEDS ORDERED: DULA3INJ SC (16:03)
[2024-09-16 16:04] VITALS: BP 104/67; PULSE 98; RESP 16; TEMP 100.8; O2SAT 91
[2024-09-16 17:00] VITALS: BP 103/42; PULSE 98; RESP 16; TEMP 100.8; O2SAT 92
[2024-09-16] MEDS: ACETAMINOPHEN 325 MG TAB PO PRN (18:25)
[2024-09-16 20:00] VITALS: PULSE 91
[2024-09-16 21:00] VITALS: BP 100/55; PULSE 85; RESP 18; TEMP 98.4; O2SAT 92
[2024-09-16] MEDS: ATORVASTATIN 20 MG TAB PO SCH (21:07)
[2024-09-17] VITALS (14 sets, daily range): BP systolic 93–127; BP diastolic 41–72; PULSE 66–81; RESP 11–19; TEMP 97.7–98.7; O2SAT 92–100
[2024-09-17 06:46] LABS: Basophils # (auto) 0 10 ^3/uL (0-0.2); Eosinophils # (auto) 0.1 10 ^3/uL (0-0.8); Eosinophils % (auto) 1.3 % (0.0-7.0); Hematocrit 41.3 % (36.0-46.0); Hemoglobin 13.8 g/dL (12.2-16.2); Lymphocytes # (auto) 0.9 10 ^3/uL (0.4-5.4); Lymphocytes % (auto) 19.9 % (10.0-50.0); Mean Corpuscular Hemoglobin 29.2 pg (28.0-32.0); Mean Corpuscular Hgb Conc. 33.4 g/dL (32.0-36.0); Mean Corpuscular Volume 87.4 fL (80.0-100.0); Monocytes # (auto) 0.5 10 ^3/uL (0-1.3); Monocytes % (auto) 10.9 % (0.0-12.0); Neutrophils % (auto) 66.9 % (37.0-80.0); Nucleated Red Blood Cells % 0.3 %; Platelet Count (auto) 202 10^3/uL (140-450); Red Blood Cells 4.73 10^6/uL (4.0-5.20); Red Cell Distribution Width 15.3 % (11.8-14.3); White Blood Cell 4.4 10^3/uL (4.4-10.8)
[2024-09-17 07:04] LABS: Alanine Aminotransferase 16 U/L (7-40); Albumin 4.1 g/dL (3.2-4.8); Alkaline Phosphatase 65 U/L (46-116); Anion Gap 8 (5-15); Aspartate Aminotransferase 20 U/L (13-40); BUN/Creatinine Ratio 13.3 (10.0-20.0); Bilirubin, Total 0.4 mg/dL (0.2-1.0); Blood Urea Nitrogen 18 mg/dL (9-23); Carbon Dioxide 23 mmol/L (20-31); Chloride 107 mmol/L (98-107); Sodium 138 mmol/L (136-145); Total Protein 6.8 g/dL (5.7-8.2)
[2024-09-17 07:14] LABS: Glucose 119 mg/dL (74-106)
[2024-09-17] MEDS: ENOXAPARIN SOD 40 MG/0.4 ML SYRINGE SC SCH (08:32)
[2024-09-17] MEDS: VERAPAMIL 2.5MG/ML INJ 2ML VIAL IV ONE (08:53)
[2024-09-17] MEDS: ANGIOMAX 250 MG VIAL IV ONE (08:53)
[2024-09-17] MEDS: SODIUM CHL 0.9% 0 ML ONE (08:54)
[2024-09-17] MEDS: fentaNYL CITRATE 100 MCG/2 ML VL ONE (08:54)
[2024-09-17] MEDS: LIDOCAINE 2%HCL (LOCAL ANESTH.) INJ 20ML MDV ONE (08:54)
[2024-09-17] MEDS: MIDAZOLAM HCL 2MG/2ML 2ml VIAL (1mg/ml) ONE (08:54)
[2024-09-17] MEDS: HEPARIN IN NS 1000Units/500mL 1,500 ML ONE (08:56)
[2024-09-17] MEDS: GELATIN 1 SPONGE SIZE 50 TOP ONE (08:57)
[2024-09-17] MEDS: HEPARIN SODIUM (PORCINE) 5000 UNITS/ML 1ML VIAL ONE ×3 (09:02→09:53)
[2024-09-17] MEDS: TICAGRELOR 90 MG TAB ONE (09:53)
--- NOTE | 2024-09-17 09:59 | DVHOP2 ---
Operative Report - 2 Report Details Date: 09/17/24 Preop Diagnosis: Patient presented with recurrent episodes of chest pain at rest concerning for angina. Troponin has been negative. EKG with no significant changes. She was diagnosed with unstable angina. Postop Diagnosis: 1. Normal left ventricular end-diastolic pressure. 2. Severe stenosis in the mid to distal LAD treated with a drug-eluting stent today. 3. Moderate disease in the RCA. Surgeon: Alfred Guzman MD Anesthesiologist: The patient was deemed an adequate candidate for conscious sedation. Versed and fentanyl were given during the procedure. I was available for [id number] monitoring throughout the procedure. Anesthesia: Local Consent: The patient was informed of the risks and benefits of the procedure. These include but are not limited to complications of anesthesia, postoperative infection, incomplete relief of symptoms, recurrence of symptoms, damage to blood vessels, nerves and tendons, deep venous thrombosis, pulmonary embolism and possible need for repeat surgery in the future. Estimated Blood Loss: 10 cc Name of Procedure Performed 1. Left heart catheterization. 2. Selective coronary angiography. 3. Percutaneous coronary intervention with a stenting of mid to distal LAD. 4. Moderated sedation. Procedure Details Procedure Details: The patient was brought to the section laborer in a stable condition. Patient was found to have normal pulses in the right radial artery. The right wrist area was sterilized and draped in a sterile fashion. The skin was anesthetized using 1% lidocaine. Access in the right radial artery was obtained using a Seldinger approach. An 11 cm sheath was placed in the right radial artery. The left heart catheterization, left coronary angiography, and right coronary angiography were performed using a5 Cym[place]es tiger catheter. At the completion of the procedure hemostasis in radial artery was obtained using a TR band. Findings: Hemodynamics: Aortic pressure was 100/65 mm Hg, LVEDP was 11 mm Hg. There is no significant gradient on LV to aorta pullback. Coronary angiography: The left main coronary artery is a normal caliber bifurcating vessel. It is free of any significant disease. The left anterior descending artery is normal caliber vessel that extends to the apex. The vessel tapers in size and is small in its distal part. Mid to distal vessel has serial lesions with a 70% stenosis followed by an 80% stenosis. The vessel had JAIME 2 flow. There is a normal sized diagonal branch with no significant stenosis. The left circumflex artery is a normal-caliber nondominant vessel. No significant disease. The obtuse marginal branch and left posterolateral branch are with no significant disease. The right coronary artery is a normal caliber and dominant vessel. Mid vessel has discrete 50% calcified stenosis. Distal vessel has mild disease. RPDA and right posterolateral branches are with no significant disease. Intervention: Stenting of mid to distal LAD: It is a non bifurcation lesion. There is diffuse stenosis with serial lesions. Length is 25 mm. There is no calcification. Initial flow is JAIME 2. Guide catheter used was XB, 3.0, 6 Cymraes. The vessel was wired using a 0.014 runthrough wire. Direct stenting was performed using a 2.5 x 30 mm Medtronic becky drug-eluting stent. Postdilatation was performed using a 2.5 mm noncompliant balloon at 14 atmosphere. Post angio showed no residual stenosis, normal flow, no dissection. Impressions: 1. Normal LVEDP. 2. Severe stenosis in the mid to distal LAD treated today with a drug-eluting stent. 3. Moderate disease in the RCA. Plan: 1. Patient was loaded with Brilinta in the section laborer. Continue Brilinta 90 mg twice daily for 12 months. If experiences an issue, consider switching to [id number] mg daily in 1 month. 2. Aspirin 81 mg daily. 3. Statin therapy with goal LDL of less than 55. 4. Aggressive medical therapy and risk factors modifications. 5. Patient will be able to discharge home today after recovery, from the cardiac standpoint. Condition Stable Disposition Still a Patient ALFRED GUZMAN MD Sep 17, 2024 09:59
[2024-09-17] MEDS: TICAGRELOR 90 MG TAB PO SCH (10:00)
[2024-09-17] MEDS: ONDANSETRON HCL 4 MG/2 ML VIAL IV ONE (14:45)
[2024-09-17] MEDS ORDERED: ONDANSETRON HCL 4 MG/2 ML VIAL IV ONE (14:45)
--- NOTE | 2024-09-17 17:48 | DVHPN2 ---
Consult Progress Note Date Seen: Sep 17, 2024 Subjective Review of Systems: CVS:Normal, RESPIRATORY:Normal, NEURO:Normal Objective vital signs Vital Sign Date Time Temp Pulse Resp B/P (MAP) Pulse Ox O2 Delivery O2 Flow Rate FiO2 09/17/24 16:46 97.7 77 17 113/70 (84) 92 97.7 09/17/24 08:00 Room Air* 0 21 Total Intake and Output 09/16/24 09/16/24 09/17/24 15:00 23:00 07:00 Intake Total 0 ml 375 ml Balance 0 ml 375 ml medications Current Medications Medications Dose Ordered Sig/Che Route Start Time Stop Time Status Last Admin Dose Admin Nitroglycerin 0.4 mg Q5MINP PRN SL 09/16/24 02:30 Morphine Sulfate 2 mg Q30M PRN IV 09/16/24 02:30 Atorvastatin Calcium 40 mg HS PO 09/16/24 22:00 09/16/24 21:07 40 MG Aspirin 81 mg DAILY PO 09/16/24 10:00 09/17/24 11:30 81 MG Enoxaparin Sodium 40 mg DAILY SC 09/17/24 10:00 Levothyroxine Sodium 75 mcg QAM@0600 PO 09/16/24 06:00 09/17/24 05:22 75 MCG Empaglifozin 25 mg DAILY PO 09/16/24 10:00 09/16/24 10:50 25 MG Metoprolol Succinate 100 mg DAILY PO 09/16/24 10:00 09/16/24 10:51 100 MG Pantoprazole Sodium 40 mg DAILY@0600 PO 09/16/24 06:00 09/17/24 05:21 40 MG Diagnostic Test (Pha) 1 strip IQ4HR 09/16/24 04:00 09/17/24 16:49 1 STRIP Insulin Human Regular IQ4HR SC 09/16/24 04:00 09/16/24 20:30 2 UNITS Dextrose 50 ml UD PRN IV 09/16/24 03:30 Acetaminophen 650 mg Q6HP PRN PO 09/16/24 17:45 09/16/24 18:25 650 MG Ticagrelor 90 mg BID PO 09/17/24 10:00 Examination: LUNGS:Normal, CVS:Normal, NEURO:Normal laboratory and microbiology Laboratory Tests 09/17/24 05:40 Test 09/17/24 05:40 Range/Units Serum Glucose 119 H 74-106 mg/dL Problem List/Assessment/Plan Problem List/Assessment/Plan Coronary artery disease status post PCI of the mid-distal LAD x 1 MARK Hypertension Dyslipidemia Type 2 diabetes mellitus Thyroid disease Acute kidney injury Obesity Plan/Recommendation (Dr. Guzman) * Echocardiogram reveals EF 70-75% * DAPT with Brillinta and lipid lowering agent * Continue beta-isis, consider reducing dosage given borderline BPs * Monitor renal function The patient with chest pain underwent a transthoracic echocardiogram is status post cardiac catheterization and coronary angiogram with successful PCI to the mid to distal LAD including one MARK and moderate disease in the RCA. Recommendations are for dual antiplatelet therapy with Brilinta, lipid lowering agent, and beta-isis. If insurance unable to cover Brilinta therapy, consider transitioning to clopidogrel including a loading dose of 300 mg. Follow-up with primary zookeeper within 1-2 weeks. There is no further cardiac workup indicated at this time. Thank you for allowing us to participate in this patient's care. Please call if you have any questions or concerns. This medical document was created using an electronic medical record system with voice recognition software and computerized dictation system. Although this document has been carefully reviewed, there might still be some phonetic and typographical errors. Occasional wrong-word or ``sound-alike substitutions may have occurred due to the inherent limitations of voice recognition software. These areas are purely typographical due to imperfections of the software programs and do not reflect any compromise in the patient's medical care. Please read the chart carefully and recognize, using context, where these substitutions have occurred. Plan discussed with: Patient, Other Date of Service: Sep 17, 2024 Billing Provider: ALFRED GUZMAN MD Cardiology Common Codes: [id number] INP/OBS CARE (High) AVTARPHILIPPEASMITA AUTO RENTAL CLERK Sep 17, 2024 17:48
--- NOTE | 2024-09-17 19:51 | DVHPNRES ---
Progress Note Date Seen: Sep 17, 2024 Resident Creating Document: SHAD JADE RESIDENT Has the PT tested + for MRSA If YES, has PT been informed?: No Medical Necessity Reason Pt with a Central, PICC or Fol: No Subjective Review of Systems A 73-year-old female past medical history of diabetes mellitus type 2, hypothyroidism, hypertension, hyperlipidemia, presented to the hospital because of the chest comfort, pressure like. Per patient, 1st the patient developed left shoulder pain which was radiating to the back and neck, after 1 hour, the patient developed epigastric discomfort which was associated nausea, vomiting, palpitation and sweating. The patient was at rest when the pain start, also the pain lasted upto 5 h and resolved with nitroglycerine. Patient denies fever, headache, and any motor or sensory deficits. PMHx: diabetes mellitus type 2, hypothyroidism, hypertension, hyperlipidemia and breast cancer (status post intubation) PSHx: Breast cancer surgery, eye surgery for the cataracts Family history: Noncontributory Social history: Patient lives at home with the family, ex-smoker, denies alcohol and any drug use Home medication: Insulin, Jardiance, metoprolol, levothyroxine, atorvastatin, aspirin, Protonix Allergic history: Bactrim Objective vital signs Vital Sign Date Time Temp Pulse Resp B/P (MAP) Pulse Ox O2 Delivery O2 Flow Rate FiO2 09/17/24 16:46 97.7 77 17 113/70 (84) 92 97.7 09/17/24 08:00 Room Air* 0 21 Total Intake and Output 09/16/24 09/16/24 09/17/24 15:00 23:00 07:00 Intake Total 0 ml 375 ml Balance 0 ml 375 ml medications Current Medications Medications Dose Ordered Sig/Che Route Start Time Stop Time Status Last Admin Dose Admin Nitroglycerin 0.4 mg Q5MINP PRN SL 09/16/24 02:30 Morphine Sulfate 2 mg Q30M PRN IV 09/16/24 02:30 Atorvastatin Calcium 40 mg HS PO 09/16/24 22:00 09/16/24 21:07 40 MG Aspirin 81 mg DAILY PO 09/16/24 10:00 09/17/24 18:38 81 MG Enoxaparin Sodium 40 mg DAILY SC 09/17/24 10:00 Levothyroxine Sodium 75 mcg QAM@0600 PO 09/16/24 06:00 09/17/24 05:22 75 MCG Empaglifozin 25 mg DAILY PO 09/16/24 10:00 09/16/24 10:50 25 MG Metoprolol Succinate 100 mg DAILY PO 09/16/24 10:00 09/16/24 10:51 100 MG Pantoprazole Sodium 40 mg DAILY@0600 PO 09/16/24 06:00 09/17/24 05:21 40 MG Diagnostic Test (Pha) 1 strip IQ4HR 09/16/24 04:00 09/17/24 16:49 1 STRIP Insulin Human Regular IQ4HR SC 09/16/24 04:00 09/16/24 20:30 2 UNITS Dextrose 50 ml UD PRN IV 09/16/24 03:30 Acetaminophen 650 mg Q6HP PRN PO 09/16/24 17:45 09/16/24 18:25 650 MG Ticagrelor 90 mg BID PO 09/17/24 10:00 Examination General Appearance: Alert, Oriented X3, Cooperative, No acute distress HEENT: Atraumatic, PERRLA, EOMI, Mucous membrane moist/pink Respiratory: Clear to auscultation, Normal air movement Cardiovascular: Regular rate, Normal S1, Normal S2, No murmurs, no chest wall tenderness Abdominal: Normal bowel sounds, Soft, No tenderness, No hepatospenomegaly, No masses Extremities: No clubbing, No cyanosis, No edema, Normal pulses, No tenderness/swelling Skin: No rashes, No breakdown, No significant lesion Neuro: Normal gait, Normal speech, Strength at 5/5 X4 ext, Normal tone, Sensation intact, Cranial nerves 3-12 NL, Reflexes 2+ Psych/Mental Status: Mental status NL, Mood NL laboratory and microbiology Laboratory Tests 09/17/24 05:40 Test 09/17/24 05:40 Range/Units Serum Glucose 119 H 74-106 mg/dL Problem List/Assessment/Plan Problem List/Assessment/Plan #ACS, unstable angina #Coronary artery disease status post PCI of the mid-distal LAD x 1 MARK #History of hypertension EKG shows right bundle-branch block Chest x-ray shows no acute cardiopulmonary abnormalities BNP is within normal limits and serial trop I is also normal Consult cardiology: [facility] today with stent placement: pt should continue DPAT Aspirin Atorvastatin Nitroglycerin sublingually Metoprolol Echocardiogram reveals EF 70-75% Diabetes mellitus type 2 Hb A1c 7.4 Insulin according to mild SS Hypothyroidism Continue levothyroxine TSH normal Hypercalcemia Likely due to dehydration due to vomiting Hyperlipidemia Continue atorvastatin RAY, likely VMN improving Kidney ultrasound: normal DIET: Cardiac diet DVT PROPHYLAXIS: Lovenox GI PROPHYLAXIS:: Protonix CODE STATUS: Goal of care discussed for more than 27 minutes, full code DISPOSITION: Telemetry Due to unstable angina and recent intervention, non stable for transfer for now Patient's status discussed with patient and on the bedside. Case discussed with Dr. Read Time spent on care 23 min Plan discussed with: Patient, Other (rn) Date of Service: Sep 17, 2024 Billing Provider: STACY READ MD Common Visit Codes: [id number] INP/OBS CARE(HIGH) SHAD JADE RESIDENT Sep 17, 2024 19:51 STACY READ MD Sep 18, 2024 15:06
[2024-09-18 01:25] VITALS: BP 107/66; PULSE 76; RESP 19; TEMP 98.1; O2SAT 96
[2024-09-18 05:00] VITALS: BP 133/70; PULSE 74; RESP 19; TEMP 97.7; O2SAT 99
[2024-09-18 06:40] LABS: Anion Gap 7 (5-15); Carbon Dioxide 23 mmol/L (20-31); Potassium 3.6 mmol/L (3.5-5.1); Sodium 138 mmol/L (136-145)
[2024-09-18 06:41] LABS: Calcium 10.2 mg/dL (8.7-10.4)
[2024-09-18 06:46] LABS: BUN/Creatinine Ratio 12.8 (10.0-20.0); Blood Urea Nitrogen 16 mg/dL (9-23)
[2024-09-18 06:50] LABS: Chloride 108 mmol/L (98-107); Glucose 107 mg/dL (74-106)
[2024-09-18] MEDS ORDERED: ATOR20TA50 PO (07:46)
[2024-09-18] MEDS ORDERED: METO-6 PO (07:46)
[2024-09-18] MEDS ORDERED: TICA90TA PO (07:46)
[2024-09-18] MEDS ORDERED: LEVO25TA6 PO (07:46)
[2024-09-18] MEDS ORDERED: EMPA1TAB PO (07:46)
[2024-09-18] MEDS ORDERED: ASPI-325 PO (07:46)
[2024-09-18 08:00] VITALS: PULSE 72
[2024-09-18 09:00] VITALS: BP 116/64; PULSE 69; RESP 20; TEMP 97.3; O2SAT 94
[2024-09-18] MEDS: InsuLIN REG 1unit/0.01ml Soln (100units/ml) SC SCH (11:30)
[2024-09-18 13:00] VITALS: BP 109/63; PULSE 71; RESP 20; TEMP 97.7; O2SAT 93
[2024-09-18] MEDS: ACCU-CHEK COMFORT CURVE STRIP VI SCH (13:40)
--- NOTE | 2024-09-18 15:19 | DVHDSRES ---
Discharge Summary Date of Admission Resident Creating Document: SHAD JADE RESIDENT Sep 16, 2024 at 02:21 Date of Discharge: Sep 18, 2024 Admitting Diagnosis unstable angina Labs/Diagnostic Data: Laboratory Results Test 09/18/24 12:08 09/18/24 05:17 09/17/24 05:40 09/16/24 08:00 POC Glucose 122 mg/dl (70-106) Sodium Level 138 mmol/L (136-145) Potassium Level 3.6 mmol/L (3.5-5.1) Chloride Level 108 mmol/L (98-107) Carbon Dioxide Level 23 mmol/L (20-31) Anion Gap 7 (5-15) Blood Urea Nitrogen 16 mg/dL (9-23) Creatinine 1.25 mg/dL (0.550-1.02) Glomerular Filtration Rate Calc 45 mL/min (>90) BUN/Creatinine Ratio 12.8 (10.0-20.0) Serum Glucose 107 mg/dL (74-106) Calcium Level 10.2 mg/dL (8.7-10.4) White Blood Count 4.4 10^3/uL (4.4-10.8) Red Blood Count 4.73 10^6/uL (4.0-5.20) Hemoglobin 13.8 g/dL (12.2-16.2) Hematocrit 41.3 % (36.0-46.0) Mean Corpuscular Volume 87.4 fL (80.0-100.0) Mean Corpuscular Hemoglobin 29.2 pg (28.0-32.0) Mean Corpuscular Hemoglobin Concent 33.4 g/dL (32.0-36.0) Red Cell Distribution Width 15.3 % (11.8-14.3) Platelet Count 202 10^3/uL (140-450) Mean Platelet Volume 8.4 fL (6.9-10.8) Neutrophils (%) (Auto) 66.9 % (37.0-80.0) Lymphocytes (%) (Auto) 19.9 % (10.0-50.0) Monocytes (%) (Auto) 10.9 % (0.0-12.0) Eosinophils (%) (Auto) 1.3 % (0.0-7.0) Basophils (%) (Auto) 1.0 % (0.0-2.0) Neutrophils # (Auto) 3.0 10 ^3/uL (1.6-8.6) Lymphocytes # (Auto) 0.9 10 ^3/uL (0.4-5.4) Monocytes # (Auto) 0.5 10 ^3/uL (0-1.3) Eosinophils # (Auto) 0.1 10 ^3/uL (0-0.8) Basophils # (Auto) 0 10 ^3/uL (0-0.2) Nucleated Red Blood Cells 0.3 % Total Bilirubin 0.4 mg/dL (0.2-1.0) Aspartate Amino Transferase (AST) 20 U/L (13-40) Alanine Aminotransferase (ALT) 16 U/L (7-40) Alkaline Phosphatase 65 U/L (46-116) Total Protein 6.8 g/dL (5.7-8.2) Albumin 4.1 g/dL (3.2-4.8) Urine Color Light-yellow (Yellow) Urine Clarity Clear (Clear) Urine pH 5.5 (5.0-9.0) Urine Specific [place] 1.029 (1.001-1.035) Urine Protein Negative (Negative) Urine Ketones Negative (Negative) Urine Blood Negative /uL (Negative) Urine Nitrite Negative (Negative) Urine Bilirubin Negative (Negative) Urine Urobilinogen Normal mg/dL (Negative) Urine Leukocyte Esterase Negative /uL (Negative) Urine RBC 1 /hpf (0 - 4) Urine WBC 1 /hpf (0 - 5) Urine Squamous Epithelial Cells Few /hpf (<5) Urine Bacteria None seen /hpf (None Seen) Urine Creatinine 112.83 mg/dL (30.0-125.0) Urine Sodium 38 mmol/L (40-220) Urine Glucose 4+ mg/dL (Normal) Urine Opiates Screen Neg (NEGATIVE) Urine Fentanyl Screen Neg (NEGATIVE) Urine Barbiturates Screen Neg (NEGATIVE) Urine Phencyclidine Screen Neg (NEGATIVE) Urine Amphetamines Screen Neg (NEGATIVE) Urine Benzodiazepines Screen Neg (NEGATIVE) Urine Cocaine Screen Neg (NEGATIVE) Urine Cannabinoids Screen Neg (NEGATIVE) Test 09/16/24 06:50 09/16/24 00:11 Hemoglobin A1c 7.4 % A1C (<5.7) B-Type Natriuretic Peptide 20.15 pg/mL (0-100) Triglycerides Level 197 mg/dL (< 150) Cholesterol Level 171 mg/dL (< 200) LDL Cholesterol 105 mg/dL (< 100) HDL Cholesterol 48 mg/dL (40-59) Thyroid Stimulating Hormone (TSH) 0.57 uIU/mL (0.55-4.78) Free Thyroxine (T4) Calculated 1.14 ng/dL (0.89-1.76) Free Triiodothyronine (T3) pg/mL 2.05 pg/mL (2.3-4.2) Troponin I High Sensitivity < 3 ng/L (</=34) Other Laboratory Tests 09/18/24 05:17 09/17/24 05:40 Brief Hx & Hospital Course: A 73-year-old female with a history of type 2 diabetes mellitus, hypertension, hypothyroidism, hyperlipidemia, and breast cancer presented with chest pain radiating to the back and neck, associated with epigastric discomfort, nausea, and diaphoresis. She was diagnosed with unstable angina and underwent coronary angiography, revealing moderate disease in the RCA and successful PCI with MARK placement in the mid-distal LAD. Echocardiography showed an EF of 70-75%. Management included dual antiplatelet therapy (Aspirin and Brilinta), atorvastatin, sublingual nitroglycerin, and beta-isis therapy with metoprolol. Hypercalcemia, likely secondary to dehydration from vomiting, and acute kidney injury (RAY) were managed with supportive care. Blood pressure was stabilized, and BNP and serial troponins were within normal limits. At discharge, the patient was stable, with improved symptoms and renal function. She was advised to continue her medications, including Brilinta, atorvastatin, metoprolol, and levothyroxine. The patient was instructed on a cardiac diet follow-up with her primary internal affairs investigator within 1-2 weeks and cardiology. She was discharged home with instructions to monitor symptoms closely and seek immediate care if chest pain or other concerning symptoms recur. General Appearance: Alert, Oriented X3, Cooperative, No acute distress HEENT: Atraumatic, PERRLA, EOMI, Mucous membrane moist/pink Respiratory: Clear to auscultation, Normal air movement Cardiovascular: Regular rate, Normal S1, Normal S2, No murmurs, no chest wall tenderness Abdominal: Normal bowel sounds, Soft, No tenderness, No hepatospenomegaly, No masses Extremities: No clubbing, No cyanosis, No edema, Normal pulses, No tenderness/swelling Skin: No rashes, No breakdown, No significant lesion Neuro: Normal gait, Normal speech, Strength at 5/5 X4 ext, Normal tone, Sensation intact, Cranial nerves 3-12 NL, Reflexes 2+ Psych/Mental Status: Mental status NL, Mood NL Case discussed with Dr Read Time spent on care 23 min Consults/Reason for consult cardiology due to unstable angina Operations or Procedures Operative Report - 2 Report Details Date: 09/17/24 Preop Diagnosis: Patient presented with recurrent episodes of chest pain at rest concerning for angina. Troponin has been negative. EKG with no significant changes. She was diagnosed with unstable angina. Postop Diagnosis: 1. Normal left ventricular end-diastolic pressure. 2. Severe stenosis in the mid to distal LAD treated with a drug-eluting stent today. 3. Moderate disease in the RCA. Surgeon: Rohit Gurrola MD Anesthesiologist: The patient was deemed an adequate candidate for conscious sedation. Versed and fentanyl were given during the procedure. I was available for [id number] monitoring throughout the procedure. Anesthesia: Local Consent: The patient was informed of the risks and benefits of the procedure. These include but are not limited to complications of anesthesia, postoperative infection, incomplete relief of symptoms, recurrence of symptoms, damage to blood vessels, nerves and tendons, deep venous thrombosis, pulmonary embolism and possible need for repeat surgery in the future. Estimated Blood Loss: 10 cc Name of Procedure Performed 1. Left heart catheterization. 2. Selective coronary angiography. 3. Percutaneous coronary intervention with a stenting of mid to distal LAD. 4. Moderated sedation. Procedure Details Procedure Details: The patient was brought to the labour market economist in a stable condition. Patient was found to have normal pulses in the right radial artery. The right wrist area was sterilized and draped in a sterile fashion. The skin was anesthetized using 1% lidocaine. Access in the right radial artery was obtained using a Seldinger approach. An 11 cm sheath was placed in the right radial artery. The left heart catheterization, left coronary angiography, and right coronary angiography were performed using a5 [place] Citizen tiger catheter. At the completion of the procedure hemostasis in radial artery was obtained using a TR band. Findings: Hemodynamics: Aortic pressure was 100/65 mm Hg, LVEDP was 11 mm Hg. There is no significant gradient on LV to aorta pullback. Coronary angiography: The left main coronary artery is a normal caliber bifurcating vessel. It is free of any significant disease. The left anterior descending artery is normal caliber vessel that extends to the apex. The vessel tapers in size and is small in its distal part. Mid to distal vessel has serial lesions with a 70% stenosis followed by an 80% stenosis. The vessel had JAIME 2 flow. There is a normal sized diagonal branch with no significant stenosis. The left circumflex artery is a normal-caliber nondominant vessel. No significant disease. The obtuse marginal branch and left posterolateral branch are with no significant disease. The right coronary artery is a normal caliber and dominant vessel. Mid vessel has discrete 50% calcified stenosis. Distal vessel has mild disease. RPDA and right posterolateral branches are with no significant disease. Intervention: Stenting of mid to distal LAD: It is a non bifurcation lesion. There is diffuse stenosis with serial lesions. Length is 25 mm. There is no calcification. Initial flow is JAIME 2. Guide catheter used was XB, 3.0, 6 [place]. The vessel was wired using a 0.014 runthrough wire. Direct stenting was performed using a 2.5 x 30 mm Medtronic becky drug-eluting stent. Postdilatation was performed using a 2.5 mm noncompliant balloon at 14 atmosphere. Post angio showed no residual stenosis, normal flow, no dissection. Impressions: 1. Normal LVEDP. 2. Severe stenosis in the mid to distal LAD treated today with a drug-eluting stent. 3. Moderate disease in the RCA. Plan: 1. Patient was loaded with Brilinta in the labour market economist. Continue Brilinta 90 mg twice daily for 12 months. If experiences an issue, consider switching to [id number] mg daily in 1 month. 2. Aspirin 81 mg daily. 3. Statin therapy with goal LDL of less than 55. 4. Aggressive medical therapy and risk factors modifications. 5. Patient will be able to discharge home today after recovery, from the cardiac standpoint. Condition at Discharge: Stable Final Diagnosis/Problems List 1. Normal left ventricular end-diastolic pressure. 2. Severe stenosis in the mid to distal LAD treated with a drug-elutingstent today.3. Moderate disease in the RCA. #ACS, unstable angina #Coronary artery disease status post PCI of the mid-distal LAD x 1 MARK #History of hypertension #Diabetes mellitus type 2 #Hypothyroidism #Hypercalcemia resolved #RAY, likely VMN resolved Discharge Disposition: Home Discharge Instruct/Medications Diet: Consistent carbohydrate, Cardiac 2g Na,low cholest Activity: Light activity Follow Up/Referral: f/u dc clinic and cardiolgoy Medications: see prescription Discharge Statement: "Patient was advised to return to the ER or call 911 if any headaches, dizziness, shortness of breath, chest pain, abdominal pain, bleeding, fevers, or worsening of medical condition. Patient was counseled about treatment plan, medications, possible side effects, patientverbalized understanding. All questions were answered to the best of my ability. This discharge took greater then 30 minutes in planning, reviewing documentation, counseling the patient, and discussing with other team members." ASSESSMENT ASSESSMENT Assessment 1. Normal left ventricular end-diastolic pressure. 2. Severe stenosis in the mid to distal LAD treated with a drug-elutingstent today.3. Moderate disease in the RCA. Date of Service: Sep 18, 2024 Billing Provider: STACY READ MD Common Visit Codes: [id number] DISCH DAY >30min SHAD JADE RESIDENT Sep 18, 2024 15:18 STACY READ MD Sep 18, 2024 21:27
[2024-09-18 16:24] VITALS: BP 114/68; PULSE 75; TEMP 36.5
== END 2024-09-18 16:42 | disposition home or self-care (01) | DRG 321 ==
LOC: EDBD 22:59 → ER 22:59 → TELE 09-16 02:21 → TELE-CENTR 09-16 15:29
PROVIDERS: ADMIT Student in an Organized Health Care Education/Training Program; ATTEND Student in an Organized Health Care Education/Training Program
PROC: 027034Z Dilation of Coronary Artery, One Artery with Drug-eluting Intraluminal Device, Percutaneous Approach (ICD-10-PCS; principal; 2024-09-17)
PROC: 4A023N7 Measurement of Cardiac Sampling and Pressure, Left Heart, Percutaneous Approach (ICD-10-PCS; 2024-09-17)
PROC: B2111ZZ Fluoroscopy of Multiple Coronary Arteries using Low Osmolar Contrast (ICD-10-PCS; 2024-09-17)
DX: I25.110 Atherosclerotic heart disease of native coronary artery with unstable angina pectoris (principal); N17.0 Acute kidney failure with tubular necrosis; I24.9 Acute ischemic heart disease, unspecified; I16.0 Hypertensive urgency; E07.9 Disorder of thyroid, unspecified; E11.9 Type 2 diabetes mellitus without complications; E66.9 Obesity, unspecified; E83.52 Hypercalcemia; E78.5 Hyperlipidemia, unspecified; I45.10 Unspecified right bundle-branch block; E03.9 Hypothyroidism, unspecified; Z85.3 Personal history of malignant neoplasm of breast; Z79.4 Long term (current) use of insulin; Z79.899 Other long term (current) drug therapy; Z68.34 Body mass index [BMI] 34.0-34.9, adult
CPT/HCPCS: 36415; 76775; 80048; 80053; 80061; 80307; 81001; 82570; 82962; 83036; 83880; 84300; 84439; 84443; 84481; 84484; 85025; 92928; 93005; 93306; 93458; 99152; C1874; G0378; J1815; J2250; J2405